=== PATIENT | female | born 1960 | race Caucasian/White ===

== ENCOUNTER 2017-01-27 05:59 | Day surgery (SDC) | payer OTHER ==
[~2017-01-27] VITALS: Ht 170.2 cm; Wt 73.1 kg
[2017-01-27] VITALS (12 sets, daily range): BP systolic 93–112; BP diastolic 51–88; PULSE 73–82; RESP 10–19; O2SAT 93–98
[~2017-01-27 05:59] MED LIST: GABA-502 PO; HYDR-3740 PO
[2017-01-27] MEDS ORDERED: fentaNYL-PF 50 mCg/mL 2 mL Inj ONE (06:00)
[2017-01-27] MEDS ORDERED: Dexamethasone 4 mg/mL Inj ONE (06:00)
[2017-01-27] MEDS ORDERED: Propofol 10,000 mCg/mL 20 mL Inj ONE (06:00)
[2017-01-27] MEDS ORDERED: Ondansetron 2 mg/mL 2 mL Inj ONE (06:00)
[2017-01-27] MEDS ORDERED: MetoCLOpramide 5 mg/mL 2 mL Inj ONE (06:00)
[2017-01-27] MEDS: Lactated Ringer's 1,000 ML IV SCH ×2 (06:58→07:33)
[2017-01-27] MEDS ORDERED: Lidocaine 1%-Epi 1:100,000 20 mL Inj INFILTRATE ONE (07:33)
[2017-01-27] MEDS ORDERED: Lactated Ringer's 1,000 ML IV SCH (07:47)
[2017-01-27] MEDS ORDERED: Lactated Ringer's 500 ML IV PRN (07:47)
--- NOTE | 2017-01-27 07:47 | PCM.HPANE ---
Patient Data Surgeon Admitting Provider: Attending Provider:Orion Ray DO Primary Care Physician:Leilani Dior Other Provider:Jany Mcguire Anesthesia Reason for Visit Right Cubital Tunnel Syndrome Ht/WT & BMI Height (Feet): 5 Height (Inches): 7 Weight (Kilograms): 73.1 Body Mass Index 25.00 Allergies Coded Allergies: ketorolac (Verified Allergy, Severe, HIVES, 05/29/13) prednisone (Verified Adverse Reaction, Unknown, "jittery", 01/24/17) Past Anesthesia History Anesthesia History: Denies:: Abnormal Airway, Anesthesia Reactions (difficult to "go under"), Difficult Intubation, Fam Anesthesia Reaction, Fam Malignant Hypertherm, Malignant Hyperthermia Diabetes History Hx Diabetes?: No MRSA MRSA: No Medications Hypertension Medication: No Home Meds Incl Beta Paramjit: No Reported Medications Hydrocodone-Acetaminophen 10-325 mg 1 Each Tablet1 Tablet PO Q8H PRN For Pain Ref 0 01/24/17 Gabapentin 300 Mg [id number] Mg PO TID Ref 0 01/24/17 History History of ENT Problems?: No HEENT History: Denies:: Abnormal Airway Cataracts Difficult Intubation Dysphagia Glaucoma Hearing Problem Sinus Problem TMJ Denture Type: Full- Upper Hx of Heart Problems?: No Cardiovascular History: Denies:: AICD Abdominal Aortic Aneurism Atrial Fibrillation Chest Pain Congestive Heart Failure Edema Heart Murmur Hypertension Irregular Heartbeat Pacemaker Hx of Respiratory Problem?: No Respiratory History: Denies:: Asthma COPD Emphysema Oxygen Administration Pneumonia Tuberculosis Use of C-PAP Machine Hx Neurologic Problems?: No Neurological History: Denies:: CVA Dementia Dizziness Headaches Multiple Sclerosis Parkinson's Disease Seizures Hx of GI Problems?: Yes Gastrointestinal History: Positive for:: Gall Bladder Disease (removed ) Gastroesphageal Reflux Hepatitis (hep c treated with harvoni- cleared ) Rectal Bleeding (dark red) Denies:: Cirrhosis Diverticulitis Gastrointestinal Bleeding Heartburn Hiatal Hernia Hx of Problems?: No Genitourinary History: Denies:: Kidney Stones Urinary Tract Infection Female Hx: Positive for:: Problems with Breasts? (breast augmentation) Denies:: Currently Skin History: Denies:: History Skin Disorders? Pressure Ulcers Hx Musculoskeletal Problems?: Yes Musculoskeletal History: Positive for:: Back Injury (spinal abcess--surgery ) Musculoskeletal Trauma (right arm current admission problem) Denies:: Degenerative Joint Joint Replacement Osteoarthritis Rheumatoid Arthritis Systemic Lupus Hx of Psycho/Social Problems?: No Psycho Social History: Denies:: Anxiety Hx Depression Hx Surgeries?: Yes (hysterectomy, spinal abscess, breast augment, colon resect) Hx Any Other Health Problems?: Yes Other History: Positive for:: Hospitalization Denies:: Cancer Endocrine Disease Thyroid Disease History Blood Transfusions: Positive for:: Accept Blood Products? Denies:: Blood Transfusions Hx Diabetes: No Hx Alcohol Use: No (not since )Hx Substance Use: Yes ("clean YEARS")Have You Smoked inLast 12 mo: Yes Stop/Bang S-Snoring: Do You Snore Loudly: No T-Tired: feel tired, fatigued: No O-Obsered: Observed not breath: No P-Blood Pressure: treated: No B- Body Mass Index > 35 kg/m2: No A- Age over 50: Yes N- Neck Large Circumference: No G- Gender Male: No RANDY Total Score: 1 Risk Assessment Category Category 1A: Patient has history of documented sleep apnea, and HAS NOT received any narcotic, sedative or anesthesia administration during this stay. Category 1B: Patient has history of documented sleep apnea, and HAS received any narcotic , sedative or anesthesia administration during this stay Category 2: Patient has SUSPECTED Obstructive Sleep Apnea, and HAS received any narcotic , sedative or anesthesia administration during this stay. Category 3: Patient has SUSPECTED Obstructive Sleep Apnea and HAS NOT received narcotic, sedative or anesthesia administration during this stay. Category 4: Outpatient in Procedural Areas with known sleep apnea or who screen positive for High Risk via the STOP/BANG questionnaire. Exam Exam Vital Signs Vital Signs Date Time Temp Pulse Resp B/P Pulse Ox O2 Delivery O2 Flow Rate FiO2 01/27/17 06:36 36.0 73 16 112/80 98 Room Air General Appearance: Alert, Oriented X3, Cooperative, No Acute Distress HEENT/AIRWAY: MP 2, Neck Movement (FROM), Mouth Opening (3 FBMO) Lungs: Normal Air Movement Heart: Regular Rate/Rhythm Meds/Labs/Diagnostics Admission Meds Current Medications Lactated Ringer's (Lr) 1,000 ml @ 120 mls/hr Q8H20M IV Last administered on t 06:58; Start 01/27/17 at 05:00; Stop 01/27/17 at 13:19 Plan Impression Patient chart reviewed, patient interviewed and anesthestic plan with risks, benefits, and alternatives discussed, and informed consent obtained. NPO Status: WATER AT 0400 ASA Physical Status: ASA3 Severe Disease (H/O IV Heroine Abuse) Anesthetic Plan: GA Bene/Risks/Altern/Consents: Yes HP Complete Prior to Induction: Yes Tree Palacios MD Jan 27, 2017 07:16
[2017-01-27] MEDS ORDERED: HYDROmorphone 1 mg/mL Inj IVPUSH PRN (07:50)
[2017-01-27] MEDS ORDERED: EPHEDrine Sulfate 50 mg/mL Inj IVPUSH PRN (07:50)
[2017-01-27] MEDS ORDERED: Labetalol 5 mg/mL 4 mL Inj IV PRN (07:50)
[2017-01-27] MEDS ORDERED: Atropine 0.4 mg/mL Inj IVPUSH PRN (07:50)
[2017-01-27] MEDS ORDERED: hydrALAZINE 20 mg/mL Inj IVPUSH PRN (07:50)
[2017-01-27] MEDS ORDERED: Ondansetron 2 mg/mL 2 mL Inj IVPUSH PRN (07:50)
[2017-01-27] MEDS ORDERED: MetoCLOpramide 5 mg/mL 2 mL Inj IVPUSH PRN (07:50)
[2017-01-27] MEDS ORDERED: Phenylephrine 10,000 mCg/mL Inj IVPUSH PRN (07:50)
[2017-01-27] MEDS ORDERED: HYDROmorphone 0.5 mg/0.5 mL iSecure Syringe ONE (08:23)
[2017-01-27] MEDS: fentaNYL-PF 50 mCg/mL 2 mL Inj IVPUSH PRN ×2 (08:31→08:40)
--- NOTE | 2017-01-27 08:53 | PCM.ANEP1 ---
Post Anesthesia Phase 1 PACU Phase 1 Assessment Vital Signs Vital Signs Date Time Temp Pulse Resp B/P Pulse Ox O2 Delivery O2 Flow Rate FiO2 01/27/17 08:40 81 13 93/51 94 Room Air 01/27/17 08:30 77 14 101/54 94 Room Air 01/27/17 08:25 77 17 109/65 95 Room Air 01/27/17 08:20 73 16 100/62 94 Room Air 01/27/17 08:15 74 13 102/67 93 Room Air 01/27/17 08:10 36.1 73 16 110/60 95 Simple Mask 8 01/27/17 06:36 36.0 73 16 112/80 98 Room Air Anesthetic Administered: GA Level of Alertness: Awake, talking CORREA's with Equal Strength: Yes Pain: No Nausea or Vomiting: No Oxygen Delivery: Room Air Lungs: Normal Air Movement Dermatome Level: Full Sensation Tree Palacios MD Jan 27, 2017 08:53
--- NOTE | 2017-01-27 08:53 | PCM.ANEP2 ---
Post Anesthesia Evaluation ASA/CMS Post Anesthesia VS in Patient's Normal Range?: Yes Resp Stable; Airway Patent?: Yes CV Function & Hydration Stable: Yes Mental Status Recovered?: Yes Pain control Satisfactory?: Yes N/V Control Satisfactory?: Yes Tree Palacios MD Jan 27, 2017 08:53
[2017-01-27] MEDS ORDERED: HYDROcodone-APAP 7.5-325 mg Tablet PO ONE (09:18)
[2017-01-27] MEDS ORDERED: HYDROcodone-APAP 7.5-325 mg Tablet PO PRN (09:20)
--- NOTE | 2017-01-27 11:08 | OP ---
[address] [address] OPERATIVE REPORT PATIENT: LINDA LIRIANO : 1960 MR#: [id number] ADMIT: 01/27/2017 JOB ID: [id number] DATE OF SURGERY: 01/27/2017 PREOPERATIVE DIAGNOSIS(ES): Right cubital tunnel syndrome. POSTOPERATIVE DIAGNOSIS(ES): Right cubital tunnel syndrome. PROCEDURE: Right cubital tunnel decompression. SURGEON: Orion aRy DO. ANESTHESIA: General. HISTORY: The patient is a 56-year-old female with a longstanding history of right hand pain and paresthesias mainly involving her ring and her small finger. She failed conservative treatment with behavioral modifications and I discussed with her clinical findings, the option to proceed with a right cubital tunnel decompression versus ulnar nerve transposition pending the stability of the ulnar nerve intraoperatively. She understood the risks include, but not limited to, neurovascular injury, tendon injury, infection, failure to resolve the patient's preoperative symptoms, stiffness, persistent pain, all of which may require further intervention. The patient had all questions answered. Consent was signed and placed in chart. PROCEDURE IN DETAIL: The patient was brought to the operative suite and placed supine on the operating table. Surgical time-out performed. Everyone in the room was in agreement. After appropriate anesthesia was obtained, a right upper arm tourniquet was applied, and the right upper extremity was prepped and draped in a sterile fashion. Right upper extremity then exsanguinated and the tourniquet inflated to 250 mmHg. A 5 cm incision was made along the course of the ulnar nerve within the cubital tunnel at the elbow. Dissection was carried down to the cubital tunnel. Branches of the medial antebrachial cutaneous nerves were well protected. Electrocautery bipolar was utilized to maintain hemostasis throughout the procedure. The ulnar nerve was identified within the cubital tunnel and decompressed as far distal to include the deep fascia of the flexor carpi ulnaris and as far as proximal to the level of the medial intermuscular septum. Following complete decompression of the ulnar nerve at the elbow, the elbow was brought through a full functional range of motion. No subluxation of the ulnar nerve was identified. Copious irrigation was then performed followed by closure of the subcutaneous tissues with 4-0 Vicryl in a running 4-0 nylon for the skin. The patient was then placed in a bulky soft dressing. ESTIMATED BLOOD LOSS: Less than 1 cc. COMPLICATIONS: None. DISPOSITION: The patient tolerated the procedure well. Anesthesia was reversed. The patient was transferred to PACU for recovery. POSTOPERATIVE PLAN: The patient will follow up in the office in two weeks. We will remove the patient's sutures at that time and have her start working on range of motion and scar mobilization.
== END 2017-01-27 23:59 | disposition home or self-care (01) ==
LOC: SAS 05:59
PROVIDERS: ATTEND Orthopaedic Surgery
PROC: 01N40ZZ Release Ulnar Nerve, Open Approach (ICD-10-PCS; principal; 2017-01-27 07:30)
DX: G56.21 Lesion of ulnar nerve, right upper limb (principal)
CPT/HCPCS: 64718; J1100; J1170; J2250; J2405; J2765; J3010; J7120